=== PATIENT | female | born 1985 | race American Indian/Alaskan Native ===

== ENCOUNTER 2017-06-29 09:24 | Emergency (ER) | payer SELFPAY ==
[2017-06-29 10:17] VITALS: BP 166/91
== END 2017-06-29 12:04 | disposition left against medical advice (07) ==
LOC: ED 09:24
DX: H57.8 Other specified disorders of eye and adnexa (principal); Z53.21 Procedure and treatment not carried out due to patient leaving prior to being seen by health care provider

== ENCOUNTER 2017-09-02 10:03 | Emergency (ER) | payer OTHER ==
[2017-09-02] MEDS ORDERED: TYLENOL PO ONE (10:38)
[2017-09-02] MEDS ORDERED: TYLENOL ONE (10:40)
--- NOTE | 2017-09-02 12:37 | Emergency Department Report ---
- General Chief Complaint: Upper Respiratory Infection Stated Complaint: FLU LIKE SYMPTOMS Time Seen by Provider: 09/02/17 12:23 Source: patient Mode of arrival: Ambulatory Limitations: No Limitations - History of Present Illness Initial Comments: Patient's a 31-year-old female who presents with flulike symptoms cough and congestion fever 4 days patient works as customer service [place] multiple sick contacts including fluid patient is tolerating by mouth intake at this time there is no nausea vomiting at this time temperatures improved to 100.7. MD Complaint: fever, cough, rhinorrhea, nasal congestion, sinus pain Onset/Timin -: week(s) Severity: moderate Severity scale (0 -10): 4 Quality: aching Consistency: intermittent Improves With: nothing (nothing tried ) Worsens With: activity Context: sick contacts Associated Symptoms: fever, chills, rhinorrhea, nasal congestion, sore throat, cough, nausea. denies: chest pain, shortness of breath, abdominal pain, vomiting, diarrhea, dysuria, rash, confusion, right sweats, weight loss, epistaxis, hoarseness, ear pain Treatments Prior to Arrival: none - Related Data Previous Rx's Medication Instructions Recorded Last Taken Type Ibuprofen [Motrin 800 MG tab] 800 mg PO Q8HR PRN #30 tablet 07/12/15 Unknown Rx traMADol [Ultram 50 MG tab] 50 mg PO Q6HR PRN #10 tablet 07/12/15 Unknown Rx Guaifenesin/Pseudoephedrne HCl 1 tab PO BID PRN #24 tab 09/02/17 Unknown Rx [Mucinex D ER 1,200-120 mg Tab] Ibuprofen 800 mg PO TID PRN #30 tablet 09/02/17 Unknown Rx Allergies Allergy/AdvReac Type Severity Reaction Status Date / Time No Known Allergies Allergy Verified 07/11/15 18:38 ED Review of Systems ROS: Stated complaint: FLU LIKE SYMPTOMS Other details as noted in HPI Constitutional: denies: chills, fever Eyes: denies: eye pain, eye discharge, vision change ENT: throat pain, congestion. denies: ear pain, dental pain, hearing loss, epistaxis Respiratory: cough. denies: shortness of breath, SOB with exertion, wheezing Cardiovascular: denies: chest pain, palpitations Endocrine: no symptoms reported Gastrointestinal: nausea. denies: abdominal pain, vomiting, diarrhea Genitourinary: denies: as per HPI, urgency, dysuria, discharge Musculoskeletal: denies: back pain, joint swelling, arthralgia Skin: denies: rash, lesions Neurological: denies: headache, weakness, paresthesias Psychiatric: denies: as per HPI, anxiety, depression Hematological/Lymphatic: denies: as per HPI (addendumWeeks problem is mainly), easy bleeding, easy bruising ED Past Medical Hx - Past Medical History Previous Medical History?: Yes Hx Asthma: Yes Hx HIV: Yes Additional medical history: HIV - Surgical History Past Surgical History?: No - Social History Smoking Status: Current Every Day Smoker Substance Use Type: None - Medications Home Medications: Home Medications Medication Instructions Recorded Confirmed Last Taken Type Ibuprofen [Motrin 800 MG tab] 800 mg PO Q8HR PRN #30 tablet 07/12/15 Unknown Rx traMADol [Ultram 50 MG tab] 50 mg PO Q6HR PRN #10 tablet 07/12/15 Unknown Rx Guaifenesin/Pseudoephedrne HCl 1 tab PO BID PRN #24 tab 09/02/17 Unknown Rx [Mucinex D ER 1,200-120 mg Tab] Ibuprofen 800 mg PO TID PRN #30 tablet 09/02/17 Unknown Rx ED Physical Exam - General Limitations: No Limitations General appearance: alert, in no apparent distress - Head Head exam: Present: atraumatic, normocephalic - Eye Eye exam: Present: normal appearance, PERRL, EOMI Pupils: Present: normal accommodation - ENT ENT exam: Present: mucous membranes moist, TM's normal bilaterally. Absent: normal orophraynx - Neck Neck exam: Present: normal inspection, full ROM. Absent: lymphadenopathy, thyromegaly - Respiratory Respiratory exam: Present: normal lung sounds bilaterally. Absent: respiratory distress, rhonchi, stridor, chest wall tenderness - Cardiovascular Cardiovascular Exam: Present: regular rate, normal rhythm. Absent: systolic murmur, diastolic murmur, rubs, gallop - GI/Abdominal GI/Abdominal exam: Present: soft. Absent: distended, tenderness, guarding, rebound, rigid, normal bowel sounds, organomegaly, mass, bruit, pulsatile mass, hernia - Rectal Rectal exam: Present: deferred - External exam: Present: normal external exam - Extremities Exam Extremities exam: Present: normal inspection - Back Exam Back exam: Present: normal inspection - Neurological Exam Neurological exam: Present: alert, oriented X3, CN II-XII intact, normal gait - Psychiatric Psychiatric exam: Present: normal affect, normal mood - Skin Skin exam: Present: warm, dry, intact, normal color. Absent: rash ED Course Vital Signs 09/02/17 10:34 Temperature 101 F H Pulse Rate 120 H Respiratory 18 Rate Blood Pressure 157/88 O2 Sat by Pulse 98 Oximetry ED Medical Decision Making - Medical Decision Making pt presents for flu like symptoms x 1 week cough congestion post nasal drip bodyaches, pt continues to tolerate fluid is just competed 1 qt of oj and sand sandwich with n/v there is no diarrhea ent: no tm erythem nose bogg clear post nasal drip, pharynx: moderate erythema no exudate no lesions uvula midline no stridor lungs clear bilat all lobes no wheezing, hr now 98, temp 99.4, plan tx for uri, hydration as directed, follow up with pcp in 2-3 days pt verbalized agreement and understanding of dc plan. Critical care attestation.: If time is entered above; I have spent that time in minutes in the direct care of this critically ill patient, excluding procedure time. ED Disposition Clinical Impression: URI (upper respiratory infection) Qualifiers: URI type: unspecified viral URI Qualified Code(s): J06.9 - Acute upper respiratory infection, unspecified Disposition: DC-01 TO HOME OR SELFCARE Is pt being admited?: No Does the pt Need Aspirin: No Condition: Good Instructions: Upper Respiratory Infection in Children (ED) Prescriptions: Guaifenesin/Pseudoephedrne HCl [Mucinex D ER 1,200-120 mg Tab] 1 tab PO BID PRN #24 tab PRN Reason: cough congestion Ibuprofen 800 mg PO TID PRN #30 tablet PRN Reason: pain fever Referrals: PRIMARY CARE,MD [Primary Care Provider] - 3-5 Days Forms: Work/School Release Form(ED) Time of Disposition: 12:42
[2017-09-02 12:51] VITALS: BP 154/94
== END 2017-09-02 12:50 | disposition home or self-care (01) ==
LOC: ED 10:03
DX: J06.9 Acute upper respiratory infection, unspecified (principal); J45.909 Unspecified asthma, uncomplicated; F17.200 Nicotine dependence, unspecified, uncomplicated
CPT/HCPCS: 99282

== ENCOUNTER 2018-10-04 23:21 | Emergency (ER) | payer OTHER ==
--- NOTE | 2018-10-05 00:10 | XRay Report ---
PROCEDURE: XR CHEST ROUTINE 2V TECHNIQUE: An lateral view of the chest were obtained. HISTORY: cough COMPARISONS: 9 FINDINGS: Heart size and pulmonary vasculature appear normal. The lungs are clear. No infiltrates masses or eff usions are identified. No acute bone abnormalities are identified. There is mild mid thoracic scolios is convex to the right. IMPRESSION: No evidence of acute cardiac or pulmonary process.. This document is electronically signed by Ramana Little MD., October 05 2018 12:08:11 AM ET
[2018-10-05 00:31] VITALS: BP 142/91
== END 2018-10-05 01:35 | disposition left against medical advice (07) ==
LOC: EDSEX → ED 23:21
DX: J00 Acute nasopharyngitis [common cold] (principal); R11.10 Vomiting, unspecified; Z53.21 Procedure and treatment not carried out due to patient leaving prior to being seen by health care provider
CPT/HCPCS: 71046

== ENCOUNTER 2019-05-18 16:23 | Emergency (ER) | payer OTHER ==
--- NOTE | 2019-05-18 16:32 | Emergency Department Report ---
Blank Doc - Documentation Documentation: 33-year-old male that presents with unable to have a bowel movement. Denies any blood in stool. This initial assessment/diagnostic orders/clinical plan/treatment(s) is/are subject to change based on patient's health status, clinical progression and re- assessment by fellow clinical providers in the ED. Further treatment and workup at subsequent clinical providers discretion. Patient/guardians urged not to elope from the ED as their condition may be serious if not clinically assessed and managed. Initial orders include: 1- Patient sent to [facility] for further evaluation and treatment 2- xray
[2019-05-18 17:02] VITALS: BP 149/80
--- NOTE | 2019-05-18 17:32 | XRay Report ---
ABDOMEN 5 VIEW(S) INDICATION: Unspecified abdominal pain. COMPARISON: None available. FINDINGS: Bowel gas pattern: No significant abnormality. Free air: None seen. Stones: None seen. Chest: No acute findings. Additional Findings: No additional significant findings. IMPRESSION: No acute abnormality of the abdomen. Signer Name: Chad Conner MD Signed: 05/18/2019 5:27 PM Workstation Name: [id number]
--- NOTE | 2019-05-18 18:37 | Emergency Department Report ---
ED General Adult HPI - General Chief complaint: GI Bleed Stated complaint: ANAL BLEEDING/PAIN Time Seen by Provider: 05/18/19 16:30 Source: patient Mode of arrival: Ambulatory Limitations: No Limitations - History of Present Illness Initial comments: This is a 33-year-old -[place] male who presents to the emergency room with rectal pain and bleeding for 2 days. He reports 2 episodes. Patient reports sensation of constipation for the past couple of days. Patient states he apply preparation H with minimal improvement of symptoms. Patient states he occasionally have to strain to have bowels movement. Onset/Timin -: days(s) Severity scale (0 -10): 2 Quality: aching Consistency: intermittent Improves with: none Associated Symptoms: denies other symptoms - Related Data Previous Rx's Medication Instructions Recorded Last Taken Type Ibuprofen [Motrin 800 MG tab] 800 mg PO Q8HR PRN #30 tablet 07/12/15 Unknown Rx traMADol [Ultram 50 MG tab] 50 mg PO Q6HR PRN #10 tablet 07/12/15 Unknown Rx Guaifenesin/Pseudoephedrne HCl 1 tab PO BID PRN #24 tab 09/02/17 Unknown Rx [Mucinex D ER 1,200-120 mg Tab] Ibuprofen [Ibuprofen 800] 800 mg PO TID PRN #30 tablet 09/02/17 Unknown Rx Hydrocortisone 2.5% [Proctosol-Hc] 28.35 gm AL BID #1 tube 05/18/19 Unknown Rx Allergies Allergy/AdvReac Type Severity Reaction Status Date / Time shellfish derived Allergy Swelling Verified 10/05/18 00:28 ED Review of Systems ROS: Stated complaint: ANAL BLEEDING/PAIN Other details as noted in HPI Constitutional: denies: chills, fever Respiratory: denies: cough, shortness of breath, wheezing Cardiovascular: denies: chest pain, palpitations Gastrointestinal: constipation, hematochezia. denies: abdominal pain, nausea, diarrhea Skin: denies: rash, lesions Neurological: denies: headache, weakness, paresthesias Psychiatric: denies: anxiety, depression ED Past Medical Hx - Past Medical History Previous Medical History?: Yes Hx Asthma: Yes Hx HIV: Yes Additional medical history: HIV - Surgical History Past Surgical History?: Yes Hx Breast Surgery: Yes - Social History Smoking Status: Current Every Day Smoker Substance Use Type: None - Medications Home Medications: Home Medications Medication Instructions Recorded Confirmed Last Taken Type Ibuprofen [Motrin 800 MG tab] 800 mg PO Q8HR PRN #30 tablet 07/12/15 Unknown Rx traMADol [Ultram 50 MG tab] 50 mg PO Q6HR PRN #10 tablet 07/12/15 Unknown Rx Guaifenesin/Pseudoephedrne HCl 1 tab PO BID PRN #24 tab 09/02/17 Unknown Rx [Mucinex D ER 1,200-120 mg Tab] Ibuprofen [Ibuprofen 800] 800 mg PO TID PRN #30 tablet 09/02/17 Unknown Rx Hydrocortisone 2.5% [Proctosol-Hc] 28.35 gm AL BID #1 tube 05/18/19 Unknown Rx ED Physical Exam - General Limitations: No Limitations General appearance: alert, in no apparent distress, obese (morbidly) - Respiratory Respiratory exam: Present: normal lung sounds bilaterally. Absent: respiratory distress - Cardiovascular Cardiovascular Exam: Present: regular rate, normal rhythm. Absent: systolic murmur, diastolic murmur, rubs, gallop - GI/Abdominal GI/Abdominal exam: Present: soft, normal bowel sounds. Absent: distended, t enderness, guarding, rebound, rigid, organomegaly - Rectal Rectal exam: Present: normal rectal tone, heme (-) stool, hemorrhoids (internal), normal prostate. Absent: decreased rectal tone, black stool, bloody stool, fecal impaction, mass, tenderness - Neurological Exam Neurological exam: Present: alert, oriented X3 - Psychiatric Psychiatric exam: Present: normal affect, normal mood - Skin Skin exam: Present: warm, dry, intact, normal color. Absent: rash ED Course Vital Signs 05/18/19 05/18/19 16:46 17:01 Temperature 99 F Pulse Rate 95 H Respiratory 18 18 Rate Blood Pressure 149/80 [Right] O2 Sat by Pulse 97 Oximetry ED Medical Decision Making - Radiology Data Radiology results: report reviewed ABDOMEN 5 VIEW(S) INDICATION: Unspecified abdominal pain. COMPARISON: None available. FINDINGS: Bowel gas pattern: No significant abnormality. Free air: None seen. Stones: None seen. Chest: No acute findings. Additional Findings: No additional significant findings. IMPRESSION: No acute abnormality of the abdomen. - Medical Decision Making Patient was examined by me. Patient is nontoxic appearing and stable. Vitals are normal. Obtained x-ray of chest and abdomen with no acute radiographic findings. Rectal exam palpated internal hemorrhoids with signs of bleeding. Patient reports a history of constipation. Start Proctosol. Follow up with PCP or return to the ER with worsening symptoms. Patient discharged home in stable condition. Critical care attestation.: If time is entered above; I have spent that time in minutes in the direct care of this critically ill patient, excluding procedure time. ED Disposition Clinical Impression: Bleeding internal hemorrhoids Disposition: TO HOME OR SELFCARE Is pt being admited?: No Condition: Stable Instructions: Hemorrhoids (ED) Prescriptions: Hydrocortisone 2.5% [Proctosol-Hc] 28.35 gm AL BID #1 tube Referrals: [facility] [Outside] - 3-[address] [facility] [Outside] - 3-5 Days [facility] [Outside] - 3-5 Days Time of Disposition: 18:34
== END 2019-05-18 18:49 | disposition home or self-care (01) ==
LOC: ED 16:23
DX: K64.8 Other hemorrhoids (principal); J45.909 Unspecified asthma, uncomplicated; F17.200 Nicotine dependence, unspecified, uncomplicated; Z21 Asymptomatic human immunodeficiency virus [HIV] infection status; Z98.890 Other specified postprocedural states; Z79.899 Other long term (current) drug therapy; Z91.013 Allergy to seafood
CPT/HCPCS: 74022